=== PATIENT | female | born 1965 | race Caucasian/White ===

== ENCOUNTER → 2016-07-27 | Outpatient (CLI) | payer OTHER ==
[~2016-07-27] MED LIST: ACET-1311 PO; CMD5 PO; DEXT20CA PO; IPRASOL4 INH; LVNIS120 SQ; PXL/10 PO; SENN-58 PO; THIA100T11 PO
[2016-07-27 08:48] LABS: INR 2.4 (0.9-1.1); PROTHROMBIN TIME (PATIENT) 26.7 SECONDS (9.0-12.0)
== END ==
LOC: C.LABCC 08:02
PROVIDERS: ATTEND Internal Medicine
DX: I26.99 Other pulmonary embolism without acute cor pulmonale (principal)

== ENCOUNTER → 2016-08-25 | Outpatient (CLI) | payer OTHER ==
[2016-08-25 09:34] LABS: PROTHROMBIN TIME (PATIENT) 33.4 SECONDS (9.0-12.0)
== END ==
LOC: C.LABCC 08:35
PROVIDERS: ATTEND Internal Medicine
DX: I26.99 Other pulmonary embolism without acute cor pulmonale (principal)

== ENCOUNTER → 2016-09-11 | Outpatient (CLI) | payer OTHER ==
[2016-09-11 08:59] LABS: INR 2.1 (0.9-1.1); PROTHROMBIN TIME (PATIENT) 22.7 SECONDS (9.0-12.0)
== END ==
LOC: C.LABCC 08:40
PROVIDERS: ATTEND Internal Medicine
DX: I26.99 Other pulmonary embolism without acute cor pulmonale (principal)